=== PATIENT | female | born 1960 | race Caucasian/White ===

== ENCOUNTER 2021-12-24 08:14 | Outpatient (CLI) | payer MEDICAID | END 2021-12-24 08:15 | disposition short-term general hospital (02) | LOC: EMS 08:14 | DX: T69.9XXA Effect of reduced temperature, unspecified, initial encounter (principal); X31.XXXA Exposure to excessive natural cold, initial encounter; R41.3 Other amnesia | CPT/HCPCS: A0425; A0429; A0999 ==